=== PATIENT | male | born 1990 | race Hispanic/Latino ===

== ENCOUNTER 2020-04-11 18:55 | Emergency (ER) | payer SELFPAY ==
[2020-04-11] MEDS ORDERED: AMOXICILLIN875 MG PO (20:53)
[2020-04-11 21:20] VITALS: BP 118/66
--- NOTE | 2020-04-27 12:27 | NUR ---
Notified patient of positive Covid results using supervisor drying and softening Marium Aiken.
== END 2020-04-11 21:20 | disposition home or self-care (01) | DRG 179 ==
LOC: ED 18:55
DX: U07.1 COVID-19 (principal)